=== PATIENT | male | born 1970 | race Asian ===

== ENCOUNTER 2017-02-25 14:31 | Emergency (ER) | payer OTHER ==
[~2017-02-25] VITALS: Ht 185.4 cm; Wt 104.3 kg
[2017-02-25 14:30] VITALS: BP 110/78; TEMP 98.7
[2017-02-25 15:12] LABS: PLATELET COUNT 300 K/uL (142-355)
[2017-02-25 15:16] LABS: POTASSIUM 3.3 mmol/L (3.6-5.2)
== END 2017-02-25 17:30 | disposition home or self-care (01) ==
LOC: ED 14:31
PROVIDERS: Family Medicine
DX: R06.4 Hyperventilation (principal); I10 Essential (primary) hypertension; R00.0 Tachycardia, unspecified; I44.4 Left anterior fascicular block
CPT/HCPCS: 36415; 80053; 85027; 93005; 99284

== ENCOUNTER 2017-04-03 17:30 | Outpatient (CLI) | payer OTHER | END 2017-04-03 17:33 | disposition short-term general hospital (02) | LOC: AMB 17:30 | DX: R07.89 Other chest pain (principal); M54.5 Low back pain; V49.88XA Car occupant (driver) (passenger) injured in other specified transport accidents, initial encounter; Y92.488 Other paved roadways as the place of occurrence of the external cause | CPT/HCPCS: A0425; A0429 ==

== ENCOUNTER 2017-04-03 17:33 | Emergency (ER) | payer OTHER ==
[~2017-04-03] VITALS: Ht 185.4 cm; Wt 95.3 kg
[2017-04-03 17:47] VITALS: TEMP 98.4
[2017-04-03 18:14] LABS: PLATELET COUNT 206 K/uL (142-355); POTASSIUM 3.6 mmol/L (3.6-5.2); SODIUM 139 mmol/L (136-145)
[2017-04-03 18:18] VITALS: BP 155/88
== END 2017-04-03 18:19 | disposition left against medical advice (07) ==
LOC: ED 17:33
PROVIDERS: Family Medicine
DX: S39.012A Strain of muscle, fascia and tendon of lower back, initial encounter (principal); F10.129 Alcohol abuse with intoxication, unspecified; S20.212A Contusion of left front wall of thorax, initial encounter; V43.63XA Car passenger injured in collision with pick-up truck in traffic accident, initial encounter
CPT/HCPCS: 80053; 84484; 85027; 99283